=== PATIENT | female | born 1950 | race Caucasian/White ===

== ENCOUNTER 2019-01-24 13:42 | Emergency (ER) | payer MEDICARE ==
[~2019-01-24] VITALS: Ht 162.6 cm; Wt 74.2 kg
--- NOTE | 2019-01-24 14:29 | NUR ---
[employer]: PT TO ROOM FROM [facility]
[2019-01-24 14:46] LABS: BASOPHILS # (AUTO) 0.03 x10^3/uL (0-0.1); BASOPHILS % (AUTO) 0 % (0-1); EOSINOPHILS # (AUTO) 0.08 x10^3/uL (0-0.4); EOSINOPHILS % (AUTO) 1 % (1-7); LYMPHOCYTES % (AUTO) 11 % (22-44); MD NO; MEAN CORPUSCULAR HEMOGLOBIN 27.7 pg (27.0-34.8); MEAN CORPUSCULAR HGB CONC 32.4 g/dL (32.4-35.8); MEAN CORPUSCULAR VOLUME 85.5 fL (80-100); MEAN PLATELET VOLUME 10.4 fL (7.4-10.4); MONOCYTES # (AUTO) 1.11 x10^3/uL (0.2-0.8); MONOCYTES % (AUTO) 8 % (2-9); NEUTROPHILS # (AUTO) 11.36 x10^3/uL (1.8-6.8); NEUTROPHILS % (AUTO) 80 % (42-75); PLATELET COUNT 130 x10^3/uL (130-400); RED CELL DISTRIBUTION WIDTH 14.9 % (9.6-15.2)
[2019-01-24 14:53] LABS: ALBUMIN 3.4 g/dL (3.4-5.0); ANION GAP 4 mmol/L (5-15); CHLORIDE 95 mmol/L (98-107); CREATININE 0.75 mg/dL (0.55-1.02)
[2019-01-24] MEDS ORDERED: VANCOMYCIN 1,500 MG in SODIUM CHLORIDE 0.9% 250 ML IV ONE (15:30)
[2019-01-24] MEDS ORDERED: VANCOMYCIN PER PHARMACY MC ONE (15:30)
[2019-01-24] MEDS ORDERED: OXYcodone/APAP 5/325MG TABLET ONE (15:56)
[2019-01-24] MEDS ORDERED: CEFTRIAXONE PMX 1GM/50ML 50 ML ONE (15:56)
[2019-01-24] MEDS ORDERED: CEFTRIAXONE PMX 1GM/50ML 50 ML IV ONE (16:00)
[2019-01-24] MEDS ORDERED: HYDROcodone/APAP 5/325 TABLET PO ONE ×2 (16:00→19:00)
[2019-01-24] MEDS ORDERED: HYDROcodone/APAP 5/325 TABLET ONE ×2 (16:16→19:04)
[2019-01-24 19:23] VITALS: BP 109/48
== END 2019-01-24 19:25 | disposition home or self-care (01) ==
LOC: ED 19:05
DX: L03.114 Cellulitis of left upper limb (principal); I10 Essential (primary) hypertension
CPT/HCPCS: 36415; 80048; 82040; 85025; 87040; 96365; 96366; 96368; 99283; J0696; J3370; J7050